=== PATIENT | female | born 1955 | race Caucasian/White ===

== ENCOUNTER 2018-03-06 10:11 | Emergency (ER) | payer BC ==
[2018-03-06 10:35] VITALS: BP 136/76
--- NOTE | 2018-03-06 10:39 | UC ---
UC General HPI - HPI Summary HPI Summary: 63 yo female c/o cough, congestion, sore throat, tired progressively worse over the past 1 1/2 weeks. Some fever. Worse in am. Had flu shot a couple weeks ago. No hemoptysis. + green sputum. No rash. A little GI upset. No issues reported. - History of Current Complaint Chief Complaint: UCGeneralIllness Stated Complaint: THROAT COMPLAINT Time Seen by Provider: 03/06/18 10:22 Hx Obtained From: Patient Pain Intensity: 5 - Allergy/Home Medications Allergies/Adverse Reactions: Allergies Allergy/AdvReac Type Severity Reaction Status Date / Time Sulfa (Sulfonamide Allergy Hives Verified 03/06/18 10:30 Antibiotics) erythromycin base AdvReac Stomach Verified 03/06/18 10:30 Cramps [id number] Reductase AdvReac Muscle Ache Verified 03/06/18 10:30 Inhibitor Home Medications: Home Medications Acetaminophen [Tylenol Extra Strength] 500 mg PO ONCE 03/06/18 [History Confirmed 03/06/18] Ganado-3 Fatty Acids/Fish Oil [Ganado 3] 2 cap PO DAILY 03/06/18 [History Confirmed 03/06/18] PMH/Surg Hx/FS Hx/Imm Hx Previously Healthy: Yes - Surgical History Surgical History: Yes Surgery Procedure, Year, and Place: tubal ligation. partial hysterectomy - Family History Known Family History: Positive: Unknown - Social History Alcohol Use: None Substance Use Type: None Smoking Status (MU): Never Smoked Tobacco Review of Systems Constitutional: Other - see hpi Skin: Negative Eyes: Negative ENT: Other - see hpi Respiratory: Cough Cardiovascular: Other - see hpi Gastrointestinal: Other - see hpi Genitourinary: Negative Motor: Negative Neurovascular: Negative Musculoskeletal: Negative Neurological: Negative Psychological: Negative Is Patient Immunocompromised?: No All Other Systems Reviewed And Are Negative: Yes Physical Exam Triage Information Reviewed: Yes Appearance: Well-Nourished Vital Signs: Initial Vital Signs Temp 98.6 F 03/06/18 10:28 Pulse 87 03/06/18 10:28 Resp 18 03/06/18 10:28 BP 136/76 03/06/18 10:28 Pulse Ox 99 03/06/18 10:28 Vital Signs Reviewed: Yes Eye Exam: Normal ENT: Positive: Pharyngeal erythema, Nasal congestion, TMs normal Neck exam: Normal Neck: Positive: Supple, Nontender Respiratory Exam: Other - + coarse rhonchorus cough. + upper airway coarse sounds Respiratory: Positive: No respiratory distress, No accessory muscle use Cardiovascular Exam: Normal Cardiovascular: Positive: RRR, No Murmur, Pulses Normal, Brisk Capillary Refill Abdominal Exam: Normal Abdomen Description: Positive: Nontender Musculoskeletal Exam: Normal Musculoskeletal: Positive: Strength Intact Neurological Exam: Normal - grossly nonfocal Psychological Exam: Normal - conversing easily and appropriately Skin Exam: Normal - no visible or reported rash Course/Dx - Course Course Of Treatment: RST negative. D/w pt coa / tx plan. Declines albuterol rx. Reviewed meds / allergies. Questions as posed answered to the best of my ability. - Differential Dx - Multi-Symptom Provider Diagnoses: Bronchitis. URI with sore throat Discharge - Sign-Out/Discharge Documenting (check all that apply): Patient Departure All imaging exams completed and their final reports reviewed: No Studies - Discharge Plan Condition: Stable Disposition: HOME Prescriptions: Azithromyxin CAROLE (NF) [Z-Carole (Zithromax) 250 mg tabs #6] 2 tab PO .TODAY, THEN 1 DAILY #6 tab Patient Education Materials: Acute Bronchitis (ED) Referrals: Jaclyn Dowling MD [Primary Care Provider] - Additional Instructions: Please follow up with your primary care physician, per routine. Seek medical attention for worse or new problems in the meantime. Rapid strep test negative. - Billing Disposition and Condition Condition: STABLE Disposition: Home
== END 2018-03-06 11:29 | disposition home or self-care (01) ==
LOC: UCCORT 10:11
DX: J40 Bronchitis, not specified as acute or chronic (principal); J06.9 Acute upper respiratory infection, unspecified; J02.9 Acute pharyngitis, unspecified; Z88.1 Allergy status to other antibiotic agents; Z88.8 Allergy status to other drugs, medicaments and biological substances
CPT/HCPCS: 87651; 99212; G0463